=== PATIENT | male | born 2000 | race Caucasian/White ===

== ENCOUNTER 2020-11-17 10:10 | Day surgery (SDC) | payer OTHER ==
[~2020-11-17] VITALS: Ht 182.9 cm; Wt 67.1 kg
[~2020-11-17 10:10] MED LIST: EFFEXOR XR37.5 MG PO; HYDROCODON-ACE1 EAC7 PO
[2020-11-17 12:55] VITALS: BP 114/65; Ht 182.9 cm; Wt 67.1 kg
--- NOTE | 2020-11-17 14:45 | NUR ---
NURSING HOME GAME PROTECTOR AT BEDSIDE TO SPEAK WITH PT DUE TO SCORE OF 2 ON SUICIDE RISK ASSESSMENT.
--- NOTE | 2020-11-17 14:51 | NUR ---
DR VALERIO NOTIFIED AND REVIEWED PATIENT'S BEHAVIOR AND ASSESSMENET. PT IS MODERATE RISK. RESOURCES GIVEN AND HE VERBALIZES UNDERSTANDING.
--- NOTE | 2020-11-17 17:40 | NUR ---
PT DID RECIEVE NARCAN 120 MG. PT IS AWAKE AND ALERT AND SHIVERING. STATES HE IS NOT COLD. JAW MUSCLES SHIVERING. PATIENT STATES IT HURTS REALLY BAD. TALKED TO DR ROSS ABOUT PAIN MANAGEMENT. ORDER OF 0.15 MG OF BUPRENEX FOR PAIN CONTROL ONE TIME DOSE.
--- NOTE | 2020-11-17 19:43 | NUR ---
1930 ATTEMPTED TO URINATE AND WAS UNABLE. RETURN TO BED WITH NAUSEA. MEDICATED X1
--- NOTE | 2020-11-17 19:59 | NUR ---
2000 PT VOIDED W/O DIFFICULTY.
--- NOTE | 2020-11-17 20:28 | NUR ---
2015 IV REMOVED AND INSTRUCTIONS GIVEN
--- NOTE | 2020-12-20 14:12 | OP ---
PATIENT NAME: DONA SCHOFIELD MEDICAL RECORD: [id number] :98 LOCATION:D.OPS ADMISSION DATE: SURGEON: VINCE JACKSON MD DATE OF OPERATION: 11/17/2020 PREOPERATIVE DIAGNOSIS: Symptomatic right inguinal hernia. POSTOPERATIVE DIAGNOSIS: Symptomatic right indirect inguinal hernia. PROCEDURE: Open repair of symptomatic right non-incarcerated indirect inguinal hernia. SURGEON: Vince Jackson MD BAND TOP MAKER: None. BLOOD LOSS: Minimal. ANESTHESIA: General. COMPLICATIONS: None. The risks, possible complications, and alternatives of the procedure were explained to the patient. He elects to proceed. The discussion specifically included, but was not limited to, bleeding requiring emergency reoperation, infection, intestinal injury as well as hernia recurrence. OPERATIVE COURSE: The patient was conveyed to the operating room electively on 11/17/2020. General anesthesia was induced by the anesthesia staff. The abdomen and genitals were sterilely prepped and draped. Incision was accomplished in the right lower quadrant. This was a transverse incision. Sharp dissection was carried down through the skin and subcutaneous tissue as well as the Vesta's fascia. The external oblique aponeurosis was opened along the direction of its fibers. I bluntly dissected down through the internal oblique and transversus abdominis muscles. A preperitoneal pocket was fashioned bluntly. An indirect hernia was reduced in its entirety. I then fashioned two ovals of polypropylene mesh. These were sutured together one on top of the other with a running #1 Surgidac. There was no femoral component. No direct component. I placed the mesh in the preperitoneal space. Once I was satisfied with the placement of the mesh, I allowed the internal oblique and transversus abdominis muscles to come together. These muscles were sutured together with multiple interrupted horizontal mattress 0 Surgidac. I incorporated a portion of the underlying mesh with these sutures. The external oblique aponeurosis was closed with running #1 Vicryl. Vesta's fascia was approximated with interrupted 3-0 Vicryl. The subdermis was approximated with interrupted 3-0 Vicryl. The skin was approximated with a running intracuticular 3-0 Vicryl. Benzoin and Steri-Strips were applied. The patient was then extubated and conveyed to post-anesthesia care unit where he was in stable condition. He will be dismissed home on an analgesic. I will see him in the office in 2 to 3 weeks. TRANSINT:[id number] Voice Confirmation ID: [id number] DOCUMENT ID: [id number] OPERATIVE REPORT [id number] DONA SCHOFIELD ROBERT MD at 1412 CC: [id number] DICTATION DATE: 12/20/20 1236 AUTOMOBILE ASSEMBLY SUPERVISOR: 12/20/20 1322 [facility] 11/17/[address] [id number]
== END 2020-11-17 20:25 | disposition home or self-care (01) ==
LOC: D.OPS 10:10
PROVIDERS: ATTEND Surgery
DX: K40.90 Unilateral inguinal hernia, without obstruction or gangrene, not specified as recurrent (principal)